=== PATIENT | male | born 1950 | race Caucasian/White ===

== ENCOUNTER 2016-11-16 12:12 | Emergency (ER) | payer OTHER ==
[~2016-11-16] VITALS: Ht 172.7 cm; Wt 88.6 kg
[2016-11-16 12:21] VITALS: BP 140/86; PULSE 66; RESP 12; O2SAT 94
[2016-11-16] MEDS ORDERED: Ondansetron 2 mg/mL 2 mL Inj IVPUSH ONE (12:25)
[2016-11-16] MEDS ORDERED: 0.9% Sodium Chloride 1,000 ML IV ONE ×2 (12:25→13:40)
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
[2016-11-16 12:43] LABS: BASOPHILS % (AUTO) 0.6 % (0-3); EOSINOPHILS % (AUTO) 3.7 % (0-5); MONOCYTES % (AUTO) 9.9 % (4-12); Mean Corpuscular Hemoglobin 31.8 pg (27.0-35.0); Mean Corpuscular Volume 90.9 fL (81-100); NEUTROPHILS % (AUTO) 47.9 % (40-74); Platelet Count 256 bil/L (150-400)
[2016-11-16 13:11] LABS: TROPONIN T < 0.010 ug/L (0.0-0.011)
[2016-11-16 13:42] VITALS: BP 135/77; PULSE 70; RESP 18; O2SAT 96
--- NOTE | 2016-11-16 14:30 | DRSVH ---
PROCEDURE: X-RAY CHEST ONE VIEW, PORTABLE ([id number]) INDICATIONS: dizziness TECHNIQUE: One view of the chest was acquired. COMPARISON: None. FINDINGS: Surgical changes and devices: None. Lungs and pleura: No pleural effusions or pneumothorax. Lungs are clear. Mediastinum: Mediastinal contours appear normal. Heart size is normal. Bones and chest wall: No suspicious bony lesions. Overlying soft tissues appear unremarkable. IMPRESSION: No acute cardiopulmonary disease process. Dictated by: Marie Abreu MD, PhD on 11/16/2016 at 14:28 Approved by: Marie Abreu MD, PhD on 11/16/2016 at 14:28
[2016-11-16 14:58] VITALS: BP_SYST 146; BP_SYST 148; BP_DIAS 83; BP_DIAS 92; PULSE 70; PULSE 72; O2SAT 97
[2016-11-16 15:01] VITALS: BP 150/92; PULSE 76; O2SAT 98
--- NOTE | 2016-11-16 16:03 | DRSVH ---
PROCEDURE: CT BRAIN WITHOUT CONTRAST ([id number]) INDICATIONS: dizziness TECHNIQUE: Noncontrast 4.5 mm thick angled axial sections acquired from the foramen magnum to the vertex, with c oronal reformats. COMPARISON: None. FINDINGS: Image quality: Diagnostic. Brain: There is no acute intra-axial or extra-axial hemorrhage. No extra-axial fluid collection is i dentified. There is no midline shift or mass effect. The orbits are grossly unremarkable. No large areas of diffusely decreased attenuation are evident within the brain to suggest diffuse cer ebral edema. There is a tubular area of low density identified involving the anterior horn of the in ferior right frontal lobe, compatible with an old basal ganglia infarct. Additional areas of vague d ecreased density are noted within the periventricular white matter of the supratentorial brain. The ventricles and cortical sulci are age-appropriate. Bones: Calvarium and visualized facial bones are grossly intact. The imaged paranasal sinuses and m astoid air cells are clear. IMPRESSION: 1. No acute intracranial hemorrhage. 2. 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 Dictated by: Saran Molina M.D. on 11/16/2016 at 14:59 Approved by: Saran Molina M.D. on 11/16/2016 at 15:01
[2016-11-16] MEDS ORDERED: MECL-114 PO (16:57)
== END 2016-11-16 17:01 | disposition home or self-care (01) ==
LOC: EDUNIT# 12:12 → EDBD 12:12 → SED 12:12
DX: R42 Dizziness and giddiness (principal); H61.21 Impacted cerumen, right ear
CPT/HCPCS: 36415; 70450; 71010; 80053; 84484; 85025; 93005; 96360; 96361; 99285; J7030